=== PATIENT | male | born 1960 | race Caucasian/White ===

== ENCOUNTER → 2019-01-30 18:01 | Outpatient (CLI) | payer MEDICAID, SELFPAY | PROVIDERS: Referring Provider Physician Assistant; Visit Provider Physician Assistant | DX: L08.9 Local infection of the skin and subcutaneous tissue, unspecified (principal); L98.429 Non-pressure chronic ulcer of back with unspecified severity | CPT/HCPCS: 87070; 87077; 87186; 87205 ==

== ENCOUNTER → 2019-08-13 16:14 | Outpatient (CLI) | payer MEDICAID, SELFPAY ==
[2019-08-13 16:25] LABS: Bacteria 0 SEEN /hpf (None Seen); Mucous, Urine 0 SEEN /hpf (<or=2+); Squamous Epithelial Cells - UA 0 SEEN /hpf (0-5)
[2019-08-13 18:05] LABS: Absolute Lymphocyte Count 1.81 X10^3/uL (0.83-4.51); Absolute Neutrophil Count 4.5 X10^3/uL (2.0-7.7); Basophil# 0.09 X10^3/uL; Basophil% 1.2 % (0-1); Eosinophil# 0.67 X10^3/uL; Eosinophils% 8.6 % (0-5); Hematocrit 44.4 % (40-54); Hemoglobin 14.7 g/dL (13.0-16.5); Lymphocyte # 1.81 X10^3/ul (4.0); Lymphocyte % 23.1 % (19-41); Mean Corp Hgb Conc 33.1 g/dL (32-36); Mean Corpuscular Hgb 29.5 pg (27.0-32.0); Mean Corpuscular Volume 89.2 fL (80-94); Mean Platelet Vol. 9.1 fl (6.2-12.0); Monocyte# 0.68 X10^3/uL; Monocyte% 8.7 % (0-10); NRBC Flagged by Analyzer 0 % (0-5); Neutrophil # 4.52 X10^3/uL (2.7-7.7); Neutrophil % 57.8 % (47-70); Platelet Count 242 K/mm3 (150-450); RBC Distribution Width CV 12.8 % (11.6-14.6); RBC Distribution Width SD 41.4 fl (35.1-43.9); Red Blood Count 4.98 M/mm3 (4.6-6.2); White Blood Count 7.8 K/mm3 (4.4-11.0)
[2019-08-13 18:24] LABS: Color, Urine Yellow (Yellow); Glucose, Dipstick Normal (Normal); Ketone-Dipstick Negative (Negative); Leukocyte Esterase-Dipstick Negative /ul (Negative); Nitrite-Dipstick Negative (Negative); Occult Blood-Urine 25 /ul (Negative); Protein-Dipstick 30 mg/dl (Negative); Urine Bilirubin Dipstick Negative (Negative); Urine Clarity Clear (Clear); Urine Urobilinogen Normal (Normal)
[2019-08-13 18:26] LABS: ALB/GLOB Ratio 1.1 RATIO (0.9-2.4); AST(SGOT) 19 U/L (15-37); Alanine Aminotransfer ALT/SGPT 31 U/L (16-61); Albumin, Serum 3.9 g/dL (3.2-5.0); Alkaline Phosphatase 70 U/L (45-117); Anion Gap 5 (5-15); BUN 16 mg/dL (7-18); BUN/Creat Ratio 14.2 RATIO (10-20); Chloride 108 mmol/L (98-107); Creatinine, Serum 1.13 mg/dL (0.70-1.30); EST Glomerular Filtration Rate 71 mL/min (>60); Est Glom Filt Rate - Afr Amer 86 mL/min (>60); Globulin 3.5 g/dL (2.2-4.2); Glucose 107 mg/dL (74-106); Potassium 3.8 mmol/L (3.5-5.1); Protein, Total 7.4 g/dL (6.4-8.2); Sodium Level 139 mmol/L (136-145)
[2019-08-13 18:40] LABS: Red Blood Cells-Urine 0-5 SEEN /hpf (0-5); White Blood Cells 0-5 SEEN /hpf (0-5)
[2019-08-15 20:07] LABS: Cytoplasmic Ab (C-ANCA) <1:20 titer (Neg:<1:20)
[2019-08-16 09:41] LABS: Perinuclear Ab (P-ANCA) <1:20 titer (Neg:<1:20)
[2019-08-20 09:56] LABS: Anti-Nuclear Antibody Test Negative (.)
== END ==
PROVIDERS: Family Provider Family Medicine; PCP Family Medicine; Referring Provider Dermatology; Visit Provider Dermatology
DX: L30.8 Other specified dermatitis (principal)
CPT/HCPCS: 36415; 80053; 81001; 85025; 86038; 86256; 87015; 87070; 87101; 87116; 87205; 87206

== ENCOUNTER → 2020-01-01 12:00 | Outpatient (CLI) | payer MEDICAID, SELFPAY ==
[2020-01-02 09:42] LABS: Hepatitis B Surface Antibody Non-Reactive; Hepatitis B Surface Antigen Non-Reactive (Nonreactive); Hepatitis C Antibody Non-Reactive (Nonreactive)
[2020-01-04 03:06] LABS: QNTFERON TB Mitogen Value > 10.00 IU/mL (.); QNTFERON TB Nil Value 0.02 IU/mL (.); QNTFERON TB1+ Ag Value 0.04 IU/mL (.); QNTFERON TB2+ Ag Value 0.03 IU/mL (.)
[2020-01-04 13:11] LABS: QNTIFERON TB Positive Criteria Negative (Negative)
== END ==
PROVIDERS: PCP Family Medicine; Referring Provider Dermatology; Visit Provider Dermatology
DX: L30.8 Other specified dermatitis (principal)
CPT/HCPCS: 36415; 86480; 86706; 86803; 87340

== ENCOUNTER 2022-05-03 10:44 | Emergency (ER) | payer MEDICAID, SELFPAY ==
[2022-05-03 10:45] VITALS: BP 179/110; PULSE 61; RESP 16; TEMP 36.2; O2SAT 98; BMI 28.8
== END 2022-05-03 12:32 | disposition left against medical advice (07) ==
LOC: ED 12:41
PROVIDERS: PCP Family Medicine
DX: R69 Illness, unspecified (principal); Z53.21 Procedure and treatment not carried out due to patient leaving prior to being seen by health care provider

== ENCOUNTER 2022-05-06 14:44 | Emergency (ER) | payer MEDICAID, SELFPAY ==
[2022-05-06] VITALS (7 sets, daily range): BP systolic 144–171; BP diastolic 78–110; PULSE 58–90; RESP 16–19; TEMP 29.1–36.1; O2SAT 97–99; BMI 28.7
[2022-05-06 16:33] LABS: Absolute Neutrophil Count 21.3 X10^3/uL (2.0-7.7); Basophil% 0.7 % (0-1); Eosinophil# 0.93 X10^3/uL; Eosinophils% 3.2 % (0-5); Hematocrit 49.3 % (40-54); Hemoglobin 16.2 g/dL (13.0-16.5); Lymphocyte % 7.3 % (19-41); Mean Corp Hgb Conc 32.9 g/dL (32-36); Mean Corpuscular Hgb 27.8 pg (27.0-32.0); Mean Corpuscular Volume 84.6 fL (80-94); Mean Platelet Vol. 9.8 fl (6.2-12.0); Monocyte# 2.98 X10^3/uL; Monocyte% 10.4 % (0-10); NRBC Flagged by Analyzer 0.1 % (0-5); Neutrophil # 21.32 X10^3/uL (2.7-7.7); Neutrophil % 74.2 % (47-70); POSITIVE DIFFERENTIAL YES; POSITIVE MORPHOLOGY YES; Platelet Count 160 K/mm3 (150-450); RBC Distribution Width SD 59.2 fl (35.1-43.9); Red Blood Count 5.83 M/mm3 (4.6-6.2); White Blood Count 28.7 K/mm3 (4.4-11.0)
[2022-05-06 16:55] LABS: Anion Gap 24 (5-15); BUN 24 mg/dL (7-18); BUN/Creat Ratio 9.5 RATIO (10-20); Chloride 92 mmol/L (98-107); Creatinine, Serum 2.52 mg/dL (0.70-1.30); EST Glomerular Filtration Rate 28 mL/min (>60); Est Glom Filt Rate - Afr Amer 34 mL/min (>60); Estimated Creatinine Clearance 31.17 ml/min; Glucose 44 mg/dL (74-106); Potassium 4.4 mmol/L (3.5-5.1); Sodium Level 131 mmol/L (136-145)
--- NOTE | 2022-05-06 16:55 | ED.RN ---
LAB CALLED TO REPORT GLUCOSE 44, NURSE AND DR. ZAFAR AWARE. JOSELIN ENG WILL GET PT A SNACK AND AND RECHECK GLUCOSE.
--- NOTE | 2022-05-06 16:56 | CT_ITS ---
STUDY: CT BRAIN WITHOUT CONTRAST REASON FOR EXAM: Male, 61 years old. confusion. B-CELL LYMPHOMA. RADIATION DOSAGE (If Supplied By Facility): CTDIvol = ( 44.99 ) mGy, DLP = ( 863.60 ) mGycm TECHNIQUE: Transaxial CT imaging of the brain was performed without administration of intravenous contrast material. Individualized dose optimization techniques were used for this CT. COMPARISON: No relevant priors. FINDINGS: Normal soft tissue structures. Normal calvarium. There is mild cerebral atrophy with widening of the extra-axial spaces and ventricular dilatation. There are areas of decreased attenuation within the white matter tracts of the supratentorial brain, consistent with microvascular disease changes. There is no intracranial hemorrhage. There are no findings of an acute ischemic infarction. Normal visualized paranasal sinuses. CT/Brain/Head without Contrast IMPRESSION: No acute findings. Mild microvascular ischemic changes. Atrophy. Electronically Signed: Danisha Johnston MD at 19:15 EDT Reading Location ID and State: [id number] / Tel , Service support ,
--- NOTE | 2022-05-06 17:00 | RAD_ITS ---
STUDY: X-RAY CHEST REASON FOR EXAM: Male, 61 years old. sob TECHNIQUE: Single AP portable view of the chest. COMPARISON: None. FINDINGS: The lungs are clear and expanded. There is no demonstrated pleural abnormality. Normal size heart. Normal mediastinum and luanne. Normal visualized pulmonary arteries. Normal visualized aortic arch and descending thoracic aorta. Normal visualized thoracic spine. Normal visualized ribs, clavicles, and shoulders. There is no demonstrated abnormality of the visualized soft tissue structures of the upper abdomen. RAD/Chest 1 View (Portable) IMPRESSION: Normal x-ray examination of the chest. Electronically Signed: Danisha Johnston MD at 17:18 EDT Reading Location ID and State: [id number] / Tel , Service support ,
--- NOTE | 2022-05-06 17:01 | US_ITS ---
EXAM: US ABDOMEN LIMITED, RIGHT UPPER QUADRANT CLINICAL INDICATION: ascities TECHNIQUE: Real-time ultrasound of the right upper quadrant with image documentation. This report was created using Sponge report generation technology. COMPARISON: CT abdomen 02/17/2022. FINDINGS: LIVER: Liver is normal in size measuring 20.2 cm. Heterogeneous liver with several lesions suspicious for metastases. The largest lesion measures 3.9 x 3.8 x 3.6 cm. There is normal echotexture. No intrahepatic biliary ductal dilation. GALLBLADDER: Unremarkable. No shadowing gallstone. No gallbladder wall thickening is demonstrated. No pericholecystic fluid. Negative sonographic Case''s sign. COMMON BILE DUCT: Unremarkable as visualized. The proximal common bile duct is within normal limits for the patient''s age. PANCREAS: Pancreas is poorly visualized. RIGHT KIDNEY: Right kidney is normal in size measuring 10.7 x 5 x 5.6 cm. Renal cortical thickness is normal. Upper pole right renal cyst measures 2.7 x 2.6 cm. There is no hydronephrosis. No shadowing calculus. FREE FLUID: Moderate ascites. US/Liver IMPRESSION: 1. Moderate ascites. 2. Hepatic lesions suspicious for metastases. 3. Right renal cyst. Follow-up is not indicated per ACR guidelines. Electronically Signed: Danisha Johnston MD at 19:20 EDT Reading Location ID and State: [id number] / Tel , Service support ,
--- NOTE | 2022-05-06 17:01 | EDS_ITS ---
HPI History of Present Illness Chief Complaint: Shortness of Breath Narrative Narrative: Patient is a 61-year-old male presenting with generalized weakness, fatigue and shortness of breath. 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 His liver function tests were worsening so he was told to hold his bexarotene. Patient notes that last night he took his normal blood pressure and phenytoin medications and then started to feel nauseous, bloated, sweating and short of breath. He states he was up all night but he also notes that he just sleeps all day and does wake up till 2 or 3 in the afternoon. He notes over the past month he had a 20 pound weight gain and does feel like his abdomen is bloated. Denies any significant change in his bowel movements but has been having diarrhea. Denies any change in the color of the bowel movements. Denies any chest pain. Denies any cough. Denies any fever and states he just feels cold. Notes he is having discoloration of his skin attributes that to be taken off of his lymphoma medication. His oncologist is Dr. Gibbs. [facility] Medical History (Updated 05/06/22 @ 22:[address] Melva Vaughan, DO) Drug abuse, episodic use Grand mal seizure HTN (hypertension) Hypokalemia Mycosis fungoides Home Medications Clobetasol Emollient 0.05% Crm 1 applic topical TID 09/14/20 [History Last Taken Unknown] atenolol 50 mg tablet 50 mg PO DAILY 09/14/20 [History Last Taken Unknown] phenytoin sodium extended 100 mg capsule 200 mg PO DAILY 11/09/20 [History Last Taken Unknown] potassium chloride 20 mEq tablet,extended release(part/cryst) 20 meq PO DAILY #30 TABLETS 12/28/21 [Rx Last Taken Unknown] bexarotene 75 mg capsule mg 05/06/22 [History Last Taken Unknown] lisinopril 20 mg-hydrochlorothiazide 12.5 mg tablet tab 05/06/22 [History Last Taken Unknown] Allergy/AdvReac Type Severity Reaction Status Date / Time No Known Allergies Allergy Verified 05/06/22 16:30 Family History Brother Heart disease Throat cancer Mother Heart disease Grandfather No problems noted. Father Brain cancer Surgical History (Updated 05/06/22 @ 19:[address] Rosy Vaca MD) No history of previous surgery Social History (Updated 05/06/22 @ 19:[address] Rosy Vaca MD) household members: spouse Smoking Status: Never smoker alcohol intake: never substance use type: former substance user ROS ROS ED Constitutional Constitutional ED: Reports chills; Denies fever(s) Eyes Eyes: Denies change in vision or diplopia ENT ENT ED: Denies rhinorrhea or sore throat Cardiovascular Cardiovascular: Denies chest pain or palpitations Respiratory/Chest Respiratory/Chest: Reports dyspnea; Denies cough Gastrointestinal Gastrointestinal: Reports abdominal pain, nausea and other Details: Abdominal bloating/distention ; Denies vomiting Genitourinary Genitourinary ED: Denies dysuria or urinary frequency Musculoskeletal Musculoskeletal: Reports back pain and other Details: left flank pain from prior biopsy ; Denies arthralgias Integumentary Reports rash Neurologic Neurologic: Reports weakness; Denies headache(s) Psychiatric Psychiatric: Denies anxiety Hematologic/Lymphatic Hematologic/Lymphatic: Reports easy bruising EXAM Physical Exam Const Vital Signs: 05/06/22 14:45 05/06/22 15:31 05/06/22 15:31 Temperature 84.4 F L Temperature Source Temporal Pulse Rate 58 L Respiratory Rate 16 Respiratory Effort Respiratory Pattern Blood Pressure 149/107 H Blood Pressure Mean 121 Pulse Ox 98 98 98 Oxygen Delivery Method Room Air Room Air Room Air 05/06/22 16:35 05/06/22 16:35 05/06/22 17:28 Temperature 97.0 F L Temperature Source Oral Pulse Rate 84 Respiratory Rate 16 Respiratory Effort Short of Breath Respiratory Pattern Normal Blood Pressure 150/87 H Blood Pressure Mean 108 Pulse Ox 98 Oxygen Delivery Method Room Air 05/06/22 18:35 05/06/22 21:00 Temperature Temperature Source Pulse Rate 90 78 Respiratory Rate 18 19 H Respiratory Effort Respiratory Pattern Blood Pressure 171/110 H 144/78 H Blood Pressure Mean 130 100 Pulse Ox 97 99 Oxygen Delivery Method Room Air Positive well developed General Appearance ED: well developed and NAD HEENT Reports dry mucous membranes Negative for trauma Mouth ED: Yes dry mucous membranes Mouth: dry mucous membranes Eyes PERRL and EOMs intact bilaterally General Eye ED: Yes scleral icterus Neck supple and no JVD Chest Wall inspection of chest normal and palpation of chest normal Resp normal respiratory effort and clear to auscultation bilaterally Cardio regular rate, regular rhythm and no murmurs GI non-tender GI Narrative: Positive fluid wave Inspection: abdominal distention Palpation: Negative for tender, guarding or rebound tenderness present Back/Spine no CVA tenderness Extremity normal to inspection General Extremety ED: Negative for edema or tenderness General Extremity: Negative for edema Neuro oriented x3 Neuro Narrative: Somnolent but does answer questions appropriately, does answer questions quite slowly Motor Exam: general weakness; Negative for strength abnormal Psych mental status grossly normal Skin Skin Narrative: Scattered bruises on the extremities in various stages of healing General Skin Exam: jaundice MDM MDM MDM Narrative Medical decision making narrative: Patient evaluated for vague sensation of malaise, generalized weakness and shortness of breath. Initial temperature documented 84.4 but I believe this is erroneous. Vital signs are otherwise significant for mild bradycardia with a pulse of 58 upon arrival. Patient is on atenolol at baseline which could be causing some bradycardia. On exam he appears slightly jaundiced, somnolent and has ascites. Work-up is remarkable for hypoglycemia and patient is given oral supplementation as well as a small bolus of D10. Patient is improvement of his mentation with this. He has no asterixis on exam. CBC shows a significant leukocytosis of 28.7 with a neutrophil predominance.Patient's white blood cell c ount was 19.23 days ago. His platelets are normal at this time. BMP shows a creatinine of 2.52 which is acute as patient had a creatinine of 1.083 days ago. He has an elevated anion gap of 24 which I suspect is metabolic in nature. His carbon dioxide is 15. Bilirubin is 4.4 and he has a significant transaminitis with an AST of 886 and an ALT of 243. Patient denies any known history of hepatitis, IV drug use or alcohol use. Liver ultrasound obtained shows moderate ascites as well as hepatic mass concerning for metastatic disease. EKG did show ischemic changes and high sensitive troponin is significantly elevated at 1405. Patient does not have any chest pain. He has pathologic anticoagulation and his INR is 3.7. We will not anticoagulate him for NSTEMI. Case discussed with cardiology on-call who does not feel that his primary problem is cardiac and feels that transfer for 2 tertiary care center is most appropriate. Case is discussed with JEWELL Holbrook on-call, who agrees that patient would benefit from transfer to a tertiary care center given findings of liver failure and possible hepatorenal syndrome. He does recommend starting patient on IV infusion of Mucomyst, Solu-Medrol and vitamin K. Patient would like to go to [facility] per her preference. Spoke with the transfer line and then spoke with [place], Dr. Garcia, who agrees with transfer but recommended primary service to be oncology as he suspects that his main problem is oncologic. I then spoke with Dr. Vera, oncology who again agrees with transfer but given his cardiac findings feels that he would benefit from going to the ER for final disposition at [facility]. Patient is excepted ultimately by Dr. Brigido Pollard. Patient remains hemodynamically stable while in the ER. No obvious signs of infection at this time and antibiotics are not given. Lab Data Attestation: I reviewed the patient's lab results. Labs: Laboratory Results - last 24 hr 05/06/22 05/06/22 05/06/22 16:25 16:25 16:25 WBC 28.7 H RBC 5.83 Hgb 16.2 Hct 49.3 MCV 84.6 MCH 27.8 MCHC 32.9 RDW Std Deviation 59.2 H RDW Coeff of Perfecto 21.0 H Plt Count 160 MPV 9.8 Immature Gran % (Auto) 4.200 H Neut % (Auto) 74.2 H Lymph % (Auto) 7.3 L Cotton % (Auto) 10.4 H Eos % (Auto) 3.2 Baso % (Auto) 0.7 Absolute Neuts (auto) 21.3 H Absolute Lymphs (auto) 2.10 Nucleated RBC % 0.1 Differential Comment SEE COMMENTS Diff Path Review May foll Platelet Estimate ADEQUATE RBC Morphology N CHROM Anisocytosis RARE PT INR APTT Sodium 131 L Potassium 4.4 Chloride 92 L Carbon Dioxide 15.0 L Anion Gap 24 H BUN 24 H Creatinine 2.52 H Estim Creat Clear Calc 31.17 Est GFR (MDRD) Af Amer 34 L Est GFR (MDRD) Non-Af 28 L BUN/Creatinine Ratio 9.5 L Glucose 44 L* Calcium 9.0 Total Bilirubin 4.40 H Direct Bilirubin 3.46 H AST 886 H ALT 243 H Alkaline Phosphatase 369 H Ammonia Troponin I High Sens Total Protein 6.7 Albumin 2.6 L Globulin 4.1 Phenytoin POC Glucose 05/06/22 05/06/22 05/06/22 16:25 16:57 17:10 WBC RBC Hgb Hct MCV MCH MCHC RDW Std Deviation RDW Coeff of Perfecto Plt Count MPV Immature Gran % (Auto) Neut % (Auto) Lymph % (Auto) Cotton % (Auto) Eos % (Auto) Baso % (Auto) Absolute Neuts (auto) Absolute Lymphs (auto) Nucleated RBC % Differential Comment Diff Path Review Platelet Estimate RBC Morphology Anisocytosis PT INR APTT Sodium Potassium Chloride Carbon Dioxide Anion Gap BUN Creatinine Estim Creat Clear Calc Est GFR (MDRD) Af Amer Est GFR (MDRD) Non-Af BUN/Creatinine Ratio Glucose Calcium Total Bilirubin Direct Bilirubin AST ALT Alkaline Phosphatase Ammonia Troponin I High Sens 1405 H* Total Protein Albumin Globulin Phenytoin 2.0 L POC Glucose 38 L* 05/06/22 05/06/22 05/06/22 17:50 17:50 18:28 WBC RBC Hgb Hct MCV MCH MCHC RDW Std Deviation RDW Coeff of Perfecto Plt Count MPV Immature Gran % (Auto) Neut % (Auto) Lymph % (Auto) Cotton % (Auto) Eos % (Auto) Baso % (Auto) Absolute Neuts (auto) Absolute Lymphs (auto) Nucleated RBC % Differential Comment Diff Path Review Platelet Estimate RBC Morphology Anisocytosis PT 36.4 H INR 3.7 APTT 47.6 H Sodium Potassium Chloride Carbon Dioxide Anion Gap BUN Creatinine Estim Creat Clear Calc Est GFR (MDRD) Af Amer Est GFR (MDRD) Non-Af BUN/Creatinine Ratio Glucose Calcium Total Bilirubin Direct Bilirubin AST ALT Alkaline Phosphatase Ammonia 23.0 Troponin I High Sens Total Protein Albumin Globulin Phenytoin POC Glucose 149 H Radiography Chest X-Ray - ED: 1 View, Read by ED Physician, Read by Radiologist and No Acute Disease Diagnostic Testing: Clinical Impression(s) from Imaging Studies Brain CT 05/06/22 16:56 IMPRESSION: No acute findings. Mild microvascular ischemic changes. Atrophy. Electronically Signed: Danisha Johnston MD at 19:15 EDT Reading Location ID and State: [id number] / Tel , Service support , Chest X-Ray 05/06/22 17:00 IMPRESSION: Normal x-ray examination of the chest. Electronically Signed: aDnisha Johnston MD at 17:18 EDT Reading Location ID and State: [place] / Tel , Service support , Liver Ultrasound 05/06/22 17:01 IMPRESSION: 1. Moderate ascites. 2. Hepatic lesions suspicious for metastases. 3. Right renal cyst. Follow-up is not indicated per ACR guidelines. Electronically Signed: Danisha Johnston MD at 19:20 EDT Reading Location ID and State: [place] / Tel , Service support , Rhythm Strip Rhythm Strip: Sinus bradycardia Rate: 59 Ectopy: None EKG Initial EKG: Attestation: I personally reviewed and interpreted this EKG as follows: Interpretation: Sinus Bradycardia Comments: Sinus bradycardia at a rate of 59 Normal axis QRS 108 Prolonged QTC at 609 Significant T wave inversions in inferior and precordial leads, no prior EKG available for comparison Prior: No Prior Critical Care Time Critical Care Time: Yes Critical care time (excluding procedures): 30-74 minutes (60), 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, Discussing w/Consultants and Arranging Admission or Transfer Discharge Plan Triage Chief Complaint: Shortness of Breath ED Provider: Melva Vaughan Dx/Rx/DC Orders Clinical Impression: Acute liver failure, Mycosis fungoides, Hypokalemia, Coagulopathy, Non-ST elevation LA (NSTEMI), Abnormal EKG, KAYCEE (acute kidney injury), Metabolic acidosis, Transaminitis, Liver mass, Hypoglycemia Prescriptions: No Action potassium chloride 20 mEq tablet,ER particles/crystals 20 meq PO DAILY Qty: 30 2RF atenolol 50 MG tablet 50 mg PO DAILY Clobetasol Emollient 0.05% Crm 1 applic topical TID phenytoin sodium extended 100 MG capsule 200 mg PO DAILY lisinopril-hydrochlorothiazide 20-12.5 mg tablet Label Comments: TAKE 1 TABLET BY MOUTH DAILY bexarotene 75 mg capsule Primary Care Provider: Larry Silver Referrals: Larry Silver MD [Primary Care Provider] - Disposition Disposition: Acute Care Hospital Discharge Location: [facility]
--- NOTE | 2022-05-06 17:12 | ED.RN ---
NO OLD EKG.
[2022-05-06 17:20] LABS: Bedside Glucose 38 mg/dL (74-106)
[2022-05-06] MEDS: Dextrose 10%-Water 250 ML 999 ML IV (17:26)
[2022-05-06 17:32] LABS: Differential Indicated SCAN CRITERIA MET
[2022-05-06 17:33] LABS: Anisocytosis RARE; Differential Comment SEE COMMENTS; Platelet Estimate ADEQUATE (ADEQ); Red Cell Morphology N CHROM NORMAL (NORM C&C)
[2022-05-06 18:00] LABS: AST(SGOT) 886 U/L (15-37); Alanine Aminotransfer ALT/SGPT 243 U/L (16-61); Albumin, Serum 2.6 g/dL (3.2-5.0); Alkaline Phosphatase 369 U/L (45-117); Bilirubin, Direct 3.46 mg/dL (0.00-0.30); Globulin 4.1 g/dL (2.2-4.2); Protein, Total 6.7 g/dL (6.4-8.2)
[2022-05-06 18:09] LABS: International Normalized Ratio 3.7; Prothrombin Time (Protime)PT. 36.4 SECONDS (11.7-14.9)
--- NOTE | 2022-05-06 18:09 | HP.PCM.HOS_ITS ---
HPI - General General Date of Admission: 05/06/22 Date of Service: 05/06/22 Chief Complaint: Dyspnea, jaundice, weight gain x 20 lbs. 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 He reports he had loose stools prior but this was following aggressive bowel regimen and currently he is now again constipated. Work-up in the ED included T 97, heart rate 90, BP 171/110, respiratory rate 18, 97% on room air, CBC with WBC 28.7, hemoglobin 16.2, platelet 160 with significant left shift, coags with PT 36.4, INR 3.7, PTT 47.6, CMP with sodium 131, chloride 92, carbon oxide 15, anion gap 24, BUN/creatinine 24/2.52, glucose initially 44, total bilirubin 4.40, direct bilirubin 3.46, AST/ALT 886/243, alk phos 369, ammonia 23, troponin 1405, phenytoin level 2, follow-up glucose level 149, chest x-ray with no acute cardiopulmonary findings, CT of the brain with mild microvascular ischemic changes and atrophy with no ac [place] intracranial findings, liver ultrasound with moderate ascites, hepatic lesion suspicious for metastatic disease, right renal cyst, EKG with sinus bradycardia with nonspecific ST-T wave changes. Given patient's significant presentation with acute liver failure coupled with suspicious metastatic lesions in the liver with auto anticoagulation evident in addition to acute kidney injury discussed case and strongly recommended discussions with gastroenterology as patient was felt likely more appropriate candidate for tertiary facility. ED did discuss case with Dr. Alvares who did recommend that patient be transferred to a tertiary facility. Patient and noted interest in being tr ansferred to [facility] which was relayed to the ED physician. In the ED patient administered vitamin K 10 mg IV x1, Solu-Medrol 80 mg IV x1, acetylcysteine initiated regimen, normal saline bolus. [facility] Medical History (Updated 05/06/22 @ 20:[address] Rosy Vaca MD) Drug abuse, episodic use Grand mal seizure HTN (hypertension) Hypokalemia Mycosis fungoides Home Medications Clobetasol Emollient 0.05% Crm 1 applic topical TID 09/14/20 [History Last Taken Unknown] atenolol 50 mg tablet 50 mg PO DAILY 09/14/20 [History Last Taken Unknown] phenytoin sodium extended 100 mg capsule 200 mg PO DAILY 11/09/20 [History Last Taken Unknown] potassium chloride 20 mEq tablet,extended release(part/cryst) 20 meq PO DAILY #30 TABLETS 12/28/21 [Rx Last Taken Unknown] bexarotene 75 mg capsule mg 05/06/22 [History Last Taken Unknown] lisinopril 20 mg-hydrochlorothiazide 12.5 mg tablet tab 05/06/22 [History Last Taken Unknown] Allergy/AdvReac Type Severity Reaction Status Date / Time No Known Allergies Allergy Verified 05/06/22 16:30 Family History Brother Heart disease Throat cancer Mother Heart disease Grandfather No problems noted. Father Brain cancer Surgical History (Updated 05/06/22 @ 19:[address] Rosy Vaca MD) No history of previous surgery Social History (Updated 05/06/22 @ 19:[address] Rosy Vaca MD) household members: spouse Smoking Status: Never smoker alcohol intake: never substance use type: former substance user ROS ROS Narrative Admission Review of Systems: CONSTITUTIONAL: No weight loss, fever, chills, + weakness or fatigue. HEENT: + Jaundiced hue but no marked scleral icterus. Eyes: No visual loss, blurred vision, double vision. Ears, Nose, Throat: No hearing loss, sneezing, congestion, runny nose or sore throat. SKIN: No rash or itching, lesions, wounds. CARDIOVASCULAR: + Edema. No chest pain, chest pressure or chest discomfort, palpitations, orthopnea, syncopal events. RESPIRATORY: + shortness of breath, No cough or sputum, wheezing, hemoptysis. GASTROINTESTINAL: + anorexia, nausea, vomiting, diarrhea, constipation concurrently. No abdominal pain, melena, BRBPR. GENITOURINARY: No dysuria, frequency, urgency or retention. NEUROLOGICAL: No headache, dizziness, syncope, paralysis, ataxia, numbness or tingling in the extremities, focal weakness, change in bowel or bladder control, seizure. MUSCULOSKELETAL: + muscle, back pain, joint pain or stiffness. HEMATOLOGIC: + anemia, bleeding or bruising. LYMPHATICS: No enlarged nodes. No history of splenectomy. PSYCHIATRIC: No history of depression or anxiety. ENDOCRINOLOGIC: + reports of sweating, cold or heat intolerance. No polyuria or polydipsia. ALLERGIES: No history of asthma, hives, eczema or rhinitis. Vital Signs Vital Signs Vital Signs: 05/06/22 14:45 05/06/22 15:31 05/06/22 15:31 Temperature 84.4 F L Temperature Source Temporal Pulse Rate 58 L Respiratory Rate 16 Respiratory Effort Respiratory Pattern Blood Pressure 149/107 H Blood Pressure Mean 121 Pulse Ox 98 98 98 Oxygen Delivery Method Room Air Room Air Room Air 05/06/22 16:35 05/06/22 16:35 05/06/22 17:28 Temperature 97.0 F L Temperature Source Oral Pulse Rate 84 Respiratory Rate 16 Respiratory Effort Short of Breath Respiratory Pattern Normal Blood Pressure 150/87 H Blood Pressure Mean 108 Pulse Ox 98 Oxygen Delivery Method Room Air Weight Weight: 194 lb 11.148 oz Body Mass Index (BMI) 28.7 Physical Exam Narrative Physical Examination: General: Awake, alert, oriented x 3 and cooperative, seated upright in the ED bed, fatigued otherwise no acute distress. Skin: Mildly jaundiced hue, normal turgor, no cyanosis. HEENT: AT/NC, EOMI, PERRLA, dry MM, no carotid bruits or JVD noted. Lungs: Mildly diminished, greater bases, appropriate effort, no rales, ronchi or wheezing. Heart: Currently regular rate and rhythm; no gallop, rub audible. Abdomen: Soft, NTTP, mildly distended, very mild fluid wave, hypoactive bowel sounds, positive HM. Extremities: No cyanosis, no clubbing, BL LE pedal to proximal red, not markedly pitting edema. Neurological: Patient awake, alert, oriented as noted, cognitive function intact; pupils equally reactive to light and accommodation, cranial nerves II- XII grossly normal, moving all 4 extremities, no focal deficits, strength moderately globally decreased secondary to acute presentation. Psychiatric: Affect appears fatigued, no acute evidence of depressive or anxiety feelings. Results Lab / Micro Data Result Diagrams: 05/06/22 16:25 05/06/22 16:25 Labs: Laboratory Results - last 24 hr 05/06/22 16:25: WBC 28.7 H, RBC 5.83, Hgb 16.2, Hct 49.3, MCV 84.6, MCH 27.8, MCHC 32.9, RDW Std Deviation 59.2 H, RDW Coeff of Perfecto 21.0 H, Plt Count 160, MPV 9.8, Immature Gran % (Auto) 4.200 H, Neut % (Auto) 74.2 H, Lymph % (Auto) 7.3 L, [place] % (Auto) 10.4 H, Eos % (Auto) 3.2, Baso % (Auto) 0.7, Absolute Neuts (auto) 21.3 H, Absolute Lymphs (auto) 2.10, Nucleated RBC % 0.1, Differential Comment SEE COMMENTS, Diff Path Review May foll, Platelet Estimate ADEQUATE, RBC Morphology N CHROM, Anisocytosis RARE 05/06/22 16:25: Sodium 131 L, Potassium 4.4, Chloride 92 L, Carbon Dioxide 15.0 L, Anion Gap 24 H, BUN 24 H, Creatinine 2.52 H, Estim Creat Clear Calc 31.17, Est GFR (MDRD) Af Amer 34 L, Est GFR (MDRD) Non-Af 28 L, BUN/Creatinine Ratio 9.5 L, Glucose 44 L*, Calcium 9.0 05/06/22 16:25: Total Bilirubin 4.40 H, Direct Bilirubin 3.46 H, AST 886 H, ALT 243 H, Alkaline Phosphatase 369 H, Total Protein 6.7, Albumin 2.6 L, Globulin 4.1 05/06/22 16:57: POC Glucose 38 L* Radiology Impression Chest X-Ray 05/06/22 17:00 IMPRESSION: Normal x-ray examination of the chest. 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 #1. Acute Liver Failure with Auto-anticoagulation with significant electrolyte/metabolic derangements w/ T Cell Lymphoma: Likely secondary to Bexarotene regimen as well as suspected metastatic lesions noted in his liver, admission total bilirubin 4.40, direct bilirubin 3.46, AST/ALT 886/243, alk phos 369, drastically increased from only days ago, if unable to be transferred in a timely manner from ED to Tertiary Facility would temporarily be admitted pending Tertiary bed, would involve Dr. Alvares Gastroenterology as well as patient Oncologist Dr. Gibbs, trend his liver function, would continue mucomyst q 8 h ours, s/p vitamin K administration IV in the ED already with INR trending and repeat dosing if necessary, would continue IV solumedrol per GI dosing preference, hold any concerning medications as noted given concurrent KAYCEE, if worsening ascites may require consideration paracentesis and at that point fluid could be assessed especially given suspected liver mets. Additionally, given labs would also obtain ABG. #2. Acute NSTEMI, likely secondary to acute presentation, demand: EKG in ED w/ sinus bradycardia with notable ST-T wave changes, CXR w/ no acute cardiopulmonary findings. Trop elevated, 1405 with significantly elevated coagulation studies consistent with auto anticoagulation in the setting of liver failure. Would maintain on a monitored bed, continue serial cardiac enzymes and EKGs. Obtain magnesium level upon admission. Given auto anticoagulation will defer heparin drip at this time. FLP in AM. Would cautiously administer ASA therapy. If patient did remain would involve Cardiology. ECHO would be requested. #3. Acute kidney injury: Secondary to acute liver failure as noted #1. Admission BUN/Cr 24/2.52, prior baseline creatinine noted to be 0.9-1.0 primarily. Given presentation with ascites and significant weight gain would loath to initiate aggressive hydration, would hold nephrotoxic medications as noted, obtain FeNa and renal US. #4. Hypoglycemia, transient: Admission presentation glucose 44, per discussion with patient suspect significant reduction in oral intake given his recent symptoms, improved with simple interventions, will continue to monitor with Accu-Cheks and would plan to obtain hemoglobin A1c to be cautious. If patient was recurrently hypoglycemic could place him on dextrose IV supplementation. #5. Seizure disorder: We will continue patient home phenytoin regimen and continue to closely monitor as with his liver failure hepatic metabolism and clearance certainly could be decreased. #6. Hypertension: We will hold patient hydrochlorothiazide, lisinopril, continue patient home atenolol regimen. #7. DVT prophylaxis: SCDs, defer chemoprophylaxis given auto anticoagulation status as noted. #8. CODE status: Patient does not have healthcare property nor living will in place but his who is present would be his decision-maker he notes. Discussed CODE status at length including difference between FULL code, DNR-CCA and DNR-CC status. Following discussions about the differences in these status, requested Full Code status. Advanced Care Planning Face to Face Time: 16 minutes. Charges/Coding Procedures Hospitalists Procedures: 03931 Advncd Care Plan 30 Min Multi Select Codes Visit Charges Office Visit/Consults: 72124 ED Visit; High/Threatening Severity Hospitalists' Procedures Procedures: 77691 Advncd Care Plan 30 Min
[2022-05-06 18:10] LABS: Partial Thromboplast Time 47.6 Seconds (24.1-36.2)
[2022-05-06 18:45] LABS: Bedside Glucose 149 mg/dL (74-106)
--- NOTE | 2022-05-06 19:25 | ED.RN ---
[facility] TRANSFER CALLED TO TRANSFER PATIENT AT THIS TIME
[2022-05-06] MEDS: MethylPREDNISolone 125 MG/2 ML Vial 80 MG IV (19:46)
[2022-05-06 19:50] LABS: Troponin-I HS 1405 pg/mL (3.0-78.0)
--- NOTE | 2022-05-06 21:09 | ED.RN ---
CALLED FOR TRANSPORT ETA [id number]
[2022-05-09 13:40] LABS: Pathologist Review Reviewed
== END 2022-05-06 23:56 | disposition short-term general hospital (02) ==
PROVIDERS: Emergency Provider Emergency Medicine; PCP Family Medicine; Visit Provider Emergency Medicine
DX: K72.00 Acute and subacute hepatic failure without coma (principal); C84.40 Peripheral T-cell lymphoma, not elsewhere classified, unspecified site; N17.9 Acute kidney failure, unspecified; G40.909 Epilepsy, unspecified, not intractable, without status epilepticus; I21.A1 Myocardial infarction type 2; D68.9 Coagulation defect, unspecified; R16.0 Hepatomegaly, not elsewhere classified; E87.20 Acidosis, unspecified; E16.2 Hypoglycemia, unspecified; R18.8 Other ascites; R19.7 Diarrhea, unspecified; I10 Essential (primary) hypertension; E87.6 Hypokalemia; R00.1 Bradycardia, unspecified; R94.31 Abnormal electrocardiogram [ECG] [EKG]
CPT/HCPCS: 70450; 71045; 76705; 80048; 80076; 80185; 82140; 82962; 84484; 85025; 85610; 85730; 87811; 93005; 94760; 99285; A4216; J3490